=== PATIENT | male | born 2000 | race Asian ===

== ENCOUNTER 2022-08-26 14:24 | Emergency (ER) | payer OTHER, BC ==
[2022-08-26 15:33] VITALS: BP 129/86; PULSE 100; RESP 16; TEMP 98.1; BMI 28.5
[2022-08-26] MEDS ORDERED: METHOCARBAMOL 500 MG TABLET PO ONE (15:52)
[2022-08-26] MEDS ORDERED: IBUPROFEN 600 MG TABLET (FP) PO ONE ×2 (15:52→16:16)
== END 2022-08-26 16:38 | disposition home or self-care (01) ==
LOC: JERFT 14:24
DX: M25.512 Pain in left shoulder (principal); V43.52XA Car driver injured in collision with other type car in traffic accident, initial encounter
CPT/HCPCS: 73030-TC-LT-FY; 99281-25